=== PATIENT | female | born 1970 | race African-American/Black ===

== ENCOUNTER 2016-10-15 15:19 | Emergency (ER) | payer MEDICAID ==
--- NOTE | 2016-10-23 18:56 | ER ---
ADMIT: 10/15/2016 RM/LOC: ER [facility] MR#: [id number] [facility] [address] [place] [id number] [place] [address] Emergency Room Report SEX: F AGE: 46 : 1970 DATE: 10/15/2016 ADDENDUM: CHIEF COMPLAINT: Left arm pain. HISTORY OF PRESENT ILLNESS: This is a 46-year-old female who had left arm pain going up to her neck for the last couple days. She does work at [employer]. She says she pulled meet with that left arm constantly. She also complains a little bit of epigastric pain. She ran out of her omeprazole and has been taking more ibuprofen lately. COURSE IN THE EMERGENCY ROOM: Her exam is actually negative. She has full range of motion with that extremity. Real no pinpoint tenderness. I am discharging her home. I told her to hold the ibuprofen, and we are going to change it to Mobic daily for pain. Also, prescribed her omeprazole 20 mg daily to help with some inflammation of the stomach. CLINICAL IMPRESSION: Left shoulder pain secondary to repetitive movements. LUIS EDUARDO Gloria / Levi Nair MD / heidi JOB #: [id number] CC: Levi Nair MD, Attending Physician Mary Moser, Family Physician
== END 2016-10-15 16:33 | disposition home or self-care (01) ==
LOC: ER 15:19
DX: M25.512 Pain in left shoulder (principal); M25.532 Pain in left wrist; K21.9 Gastro-esophageal reflux disease without esophagitis